=== PATIENT | male | born 1985 | race Caucasian/White ===

== ENCOUNTER → 2017-10-17 | Outpatient (CLI) | payer BC ==
--- NOTE | 2017-10-17 10:34 | DIAGNOSTIC IMAGING REPORT ---
TWO VIEW CHEST CLINICAL HISTORY: Low back injury. Fall. FINDINGS: PA and lateral chest radiographs are obtained. No prior studies are available for comparison at the time of dictation. The cardiomediastinal silhouette is unremarkable. The lungs and pleural spaces are clear. There is no pneumothorax. The bony thorax appears intact. IMPRESSION: No active disease in the chest. Electronically signed by: Petros Merchant M.D. 10/17/2017 10:32 AM Dictated Date/Time: 10/17/2017 10:32 AM
--- NOTE | 2017-10-17 10:38 | DIAGNOSTIC IMAGING REPORT ---
THORACIC SPINE 3 VIEWS ROUTINE CLINICAL HISTORY: 31 years-old Male presenting with LOWER BACK INJURY, FALL, MUSCLE SPASM OF BACK. TECHNIQUE: 3 views of the thoracic spine were obtained. COMPARISON: None. FINDINGS: Normal thoracic kyphosis. Vertebral bodies maintain normal height and alignment. No radiographic evidence of compression deformity. Lower cervical spine normal. No scoliosis. No significant degenerative change. No evidence of subluxation. Visualized portion of the thorax normal. IMPRESSION: No radiographic evidence of acute osseous injury of the thoracic spine. Electronically signed by: Jakob Jackson M.D. 10/17/2017 10:36 AM Dictated Date/Time: 10/17/2017 10:35 AM
== END | disposition home or self-care (01) ==
LOC: C.RAD1850 10:08
PROVIDERS: ATTEND Nurse Practitioner Family
DX: S39.92XA Unspecified injury of lower back, initial encounter (principal); W10.8XXA Fall (on) (from) other stairs and steps, initial encounter; M62.830 Muscle spasm of back; R07.81 Pleurodynia

== ENCOUNTER → 2018-05-06 | Outpatient (CLI) | payer BC | END | disposition home or self-care (01) | LOC: C.LAB 19:21 | PROVIDERS: ATTEND Family Medicine | DX: M54.9 Dorsalgia, unspecified (principal) ==